=== PATIENT | male | born 1950 | race Caucasian/White ===

== ENCOUNTER 2018-01-01 13:06 | Inpatient (IN) | payer MEDICARE ==
[~2018-01-01] VITALS: Ht 180.3 cm; Wt 88.5 kg
[2018-01-01 15:30] VITALS: BP 147/79
[2018-01-01] MEDS ORDERED: DOCUSATE SODIUM 283 MG/5 ML MINI-ENEMA PR PRN (16:15)
[2018-01-01] MEDS ORDERED: ACETAMINOPHEN 325 MG TABLET PO PRN (16:15)
[2018-01-01] MEDS ORDERED: ONDANSETRON HCL 4 MG TABLET PO PRN (16:45)
[2018-01-01] MEDS ORDERED: DEXTROSE 50%-WATER 25 GM/50 ML SYRINGE IVP PRN (18:15)
[2018-01-01 19:18] LABS: GLUCOMETER DEV NAME(LOC) 2WR 1B; GLUCOSE,POINT OF CARE 117 MG/DL (70-110)
[2018-01-01 20:02] LABS: APPEARANCE,URINE CLEAR (CLEAR); BILIRUBIN,URINE NEGATIVE (NEGATIVE); GLUCOSE, URINE (UA) NEGATIVE (NEGATIVE); KETONES,URINE NEGATIVE (NEGATIVE); LEUKOCYTE ESTERASE ,URINE NEGATIVE (NEGATIVE); NITRATE,URINE NEGATIVE (NEGATIVE); OCCULT BLOOD,URINE NEGATIVE (NEGATIVE); PH,URINE 5.5 (5.0-8.0); PROTEIN,URINE NEGATIVE (NEGATIVE); UROBILINOGEN,URINE 0.2 mg/dL (<=1.0)
[2018-01-01] MEDS: SENNA 187 MG TABLET PO SCH ×2 (21:00→22:45)
[2018-01-01] MEDS: ESCITALOPRAM OXALATE 10 MG TABLET PO SCH ×2 (21:00→21:34)
[2018-01-01] MEDS: INSULIN GLARGINE,HUM.REC.ANLOG 100 UNITS/ML SQ SCH (21:33)
[2018-01-01] MEDS: DOCUSATE SODIUM 100 MG CAPSULE PO SCH (21:33)
[2018-01-01] MEDS: GABAPENTIN 300 MG CAPSULE PO SCH (21:34)
[2018-01-01] MEDS: ATORVASTATIN CALCIUM 40 MG TABLET PO SCH (21:34)
[2018-01-01] MEDS: QUEtiapine FUMARATE 25 MG TABLET PO SCH (21:35)
[2018-01-01] MEDS: METOPROLOL TARTRATE 50 MG TABLET PO SCH (21:36)
[2018-01-01 23:53] LABS: GLUCOMETER DEV NAME(LOC) 2WR 1B; GLUCOSE,POINT OF CARE 132 MG/DL (70-110)
[2018-01-02 03:05] VITALS: BP 124/76
[2018-01-02 06:39] LABS: GLUCOMETER DEV NAME(LOC) 2WR 2E; GLUCOSE,POINT OF CARE 114 MG/DL (70-110)
[2018-01-02] MEDS ORDERED: LEVOTHYROXINE SODIUM 75 MCG TABLET PO SCH (07:00)
[2018-01-02 07:50] VITALS: BP 156/92
[2018-01-02 07:59] LABS: BASOPHILS % (AUTO) 0.2 % (0.0-2.0); HEMATOCRIT 39.4 % (41-53); HEMOGLOBIN 13.7 g/dL (13.5-17.5); LYMPHOCYTES # (AUTO) 2.1 K/uL (1.0-4.8); LYMPHOCYTES % (AUTO) 37.4 % (22.0-44.0); MEAN CORPUSCULAR HEMOGLOBIN 30.6 pg (26.0-34.0); MEAN CORPUSCULAR HGB CONC 34.8 G/dL (31.0-37.0); MEAN CORPUSCULAR VOLUME 88 fL (80-100); MONOCYTES # (AUTO) 0.5 K/uL (0.1-1.0); MONOCYTES % (AUTO) 8.2 % (2.0-9.0); NEUTROPHILS % (AUTO) 52.2 % (40.0-70.0); PLATELET COUNT (AUTO) 170 K/uL (150-450); RED BLOOD CELL COUNT(AUTO) 4.48 MIL/uL (4.50-5.90); RED CELL DISTRIBUTION WIDTH 15.2 % (11.5-14.5)
[2018-01-02 08:07] LABS: ALBUMIN 3.1 g/dL (3.4-5.0); BILIRUBIN,TOTAL 0.4 mg/dL (0.1-1.0); CALCIUM, TOTAL 8.7 mg/dL (8.8-10.5); CREATININE 1.36 mg/dL (0.60-1.30); POTASSIUM 3.9 mmol/L (3.5-5.1); TOTAL PROTEIN, SERUM 6.6 g/dL (6.4-8.2)
[2018-01-02] MEDS: DOCUSATE SODIUM 100 MG CAPSULE PO SCH ×2 (09:00→20:52)
[2018-01-02] MEDS: GABAPENTIN 300 MG CAPSULE PO SCH ×3 (09:25→20:51)
[2018-01-02] MEDS: BuPROPion HCL XL 150 MG ER TABLET PO SCH (09:26)
[2018-01-02] MEDS: ABACAVIR SULFATE 300 MG TABLET PO SCH (09:27)
[2018-01-02] MEDS: DOLUTEGRAVIR SODIUM 50 MG TABLET PO SCH (09:27)
[2018-01-02] MEDS: METOPROLOL TARTRATE 50 MG TABLET PO SCH ×2 (09:28→20:51)
[2018-01-02] MEDS: ASPIRIN 81 MG CHEWABLE TABLET PO SCH (09:29)
[2018-01-02] MEDS: INSULIN LISPRO 100 UNITS/ML SQ SCH ×2 (09:36→13:08)
[2018-01-02 12:23] LABS: GLUCOMETER DEV NAME(LOC) 2WR 2E; GLUCOSE,POINT OF CARE 103 MG/DL (70-110)
[2018-01-02 13:59] VITALS: BP 149/97
[2018-01-02 15:53] VITALS: BP 151/95
[2018-01-02 17:49] LABS: GLUCOMETER DEV NAME(LOC) 2WR 2E; GLUCOSE,POINT OF CARE 118 MG/DL (70-110)
[2018-01-02 20:45] VITALS: BP 152/96
[2018-01-02] MEDS: ATORVASTATIN CALCIUM 40 MG TABLET PO SCH (20:51)
[2018-01-02] MEDS: ESCITALOPRAM OXALATE 10 MG TABLET PO SCH (20:51)
[2018-01-02] MEDS: SENNA 187 MG TABLET PO SCH (20:52)
[2018-01-02] MEDS: QUEtiapine FUMARATE 25 MG TABLET PO SCH (20:52)
[2018-01-02] MEDS: INSULIN GLARGINE,HUM.REC.ANLOG 100 UNITS/ML SQ SCH (21:20)
[2018-01-02] MEDS: INSULIN LISPRO 100 UNITS/ML SQ PRN (21:22)
[2018-01-02 23:30] VITALS: BP 154/88
[2018-01-03 00:28] LABS: GLUCOMETER DEV NAME(LOC) 2WR 1B; GLUCOSE,POINT OF CARE 158 MG/DL (70-110)
[2018-01-03] MEDS: SitaGLIPtin PHOSPHATE 50 MG TABLET PO SCH (08:09)
[2018-01-03] MEDS: GABAPENTIN 300 MG CAPSULE PO SCH ×3 (08:09→21:00)
[2018-01-03] MEDS: METOPROLOL TARTRATE 50 MG TABLET PO SCH ×2 (08:09→21:00)
[2018-01-03] MEDS: DOLUTEGRAVIR SODIUM 50 MG TABLET PO SCH (08:09)
[2018-01-03] MEDS: ABACAVIR SULFATE 300 MG TABLET PO SCH (08:09)
[2018-01-03] MEDS: DOCUSATE SODIUM 100 MG CAPSULE PO SCH ×3 (08:09→21:00)
[2018-01-03 08:10] VITALS: BP 140/84
[2018-01-03] MEDS: BuPROPion HCL XL 150 MG ER TABLET PO SCH (08:10)
[2018-01-03] MEDS: ASPIRIN 81 MG CHEWABLE TABLET PO SCH (08:10)
[2018-01-03] MEDS: LEVOTHYROXINE SODIUM 75 MCG TABLET PO SCH (08:10)
[2018-01-03 08:19] LABS: GLUCOMETER DEV NAME(LOC) 2WR 2E; GLUCOSE,POINT OF CARE 106 MG/DL (70-110)
[2018-01-03] MEDS ORDERED: ALBUTEROL SULFATE 2.5 MG/0.5 ML NEB SOLUTION NEB PRN (13:30)
[2018-01-03] MEDS ORDERED: IPRATROPIUM BROMIDE 0.5 MG/2.5 ML NEB SOLUTION NEB PRN (13:30)
[2018-01-03 14:49] LABS: GLUCOMETER DEV NAME(LOC) 2WR 1B; GLUCOSE,POINT OF CARE 140 MG/DL (70-110)
[2018-01-03 15:19] VITALS: BP 150/94
[2018-01-03 17:54] LABS: GLUCOMETER DEV NAME(LOC) 2WR 1B; GLUCOSE,POINT OF CARE 107 MG/DL (70-110)
[2018-01-03 20:54] VITALS: BP 149/96
[2018-01-03] MEDS: ATORVASTATIN CALCIUM 40 MG TABLET PO SCH (20:59)
[2018-01-03] MEDS: ESCITALOPRAM OXALATE 10 MG TABLET PO SCH (20:59)
[2018-01-03] MEDS: QUEtiapine FUMARATE 25 MG TABLET PO SCH (20:59)
[2018-01-03] MEDS: SENNA 187 MG TABLET PO SCH (21:00)
[2018-01-03] MEDS: INSULIN GLARGINE,HUM.REC.ANLOG 100 UNITS/ML SQ SCH (21:08)
[2018-01-03] MEDS: INSULIN LISPRO 100 UNITS/ML SQ PRN (21:09)
[2018-01-03 22:19] LABS: GLUCOMETER DEV NAME(LOC) 2WR 2E; GLUCOSE,POINT OF CARE 144 MG/DL (70-110)
[2018-01-04 03:39] VITALS: BP 134/78
[2018-01-04 07:39] LABS: GLUCOMETER DEV NAME(LOC) 2WR 1B; GLUCOSE,POINT OF CARE 124 MG/DL (70-110)
[2018-01-04 07:40] VITALS: BP 145/84
[2018-01-04] MEDS: ASPIRIN 81 MG CHEWABLE TABLET PO SCH (08:20)
[2018-01-04] MEDS: GABAPENTIN 300 MG CAPSULE PO SCH ×3 (08:20→21:01)
[2018-01-04] MEDS: BuPROPion HCL XL 150 MG ER TABLET PO SCH (08:20)
[2018-01-04] MEDS: DOLUTEGRAVIR SODIUM 50 MG TABLET PO SCH (08:21)
[2018-01-04] MEDS: SitaGLIPtin PHOSPHATE 50 MG TABLET PO SCH (08:21)
[2018-01-04] MEDS: DOCUSATE SODIUM 100 MG CAPSULE PO SCH ×2 (08:21→21:00)
[2018-01-04] MEDS: ABACAVIR SULFATE 300 MG TABLET PO SCH (08:21)
[2018-01-04] MEDS: LEVOTHYROXINE SODIUM 75 MCG TABLET PO SCH (08:21)
[2018-01-04] MEDS: METOPROLOL TARTRATE 50 MG TABLET PO SCH ×2 (08:21→21:01)
[2018-01-04 12:43] LABS: GLUCOMETER DEV NAME(LOC) 2WR 2E; GLUCOSE,POINT OF CARE 108 MG/DL (70-110)
[2018-01-04 13:45] LABS: APPEARANCE,URINE CLEAR (CLEAR); BILIRUBIN,URINE NEGATIVE (NEGATIVE); GLUCOSE, URINE (UA) NEGATIVE (NEGATIVE); KETONES,URINE NEGATIVE (NEGATIVE); LEUKOCYTE ESTERASE ,URINE NEGATIVE (NEGATIVE); NITRATE,URINE NEGATIVE (NEGATIVE); OCCULT BLOOD,URINE NEGATIVE (NEGATIVE); PH,URINE 5.5 (5.0-8.0); PROTEIN,URINE NEGATIVE (NEGATIVE)
[2018-01-04 13:54] LABS: BACTERIA,URINE None Seen /HPF (None Seen); RBC,URINE None Seen /HPF (0-2); SQUAMOUS EPITHELIAL CELL,UR Rare /LPF (None Seen); WBC,URINE None Seen /HPF (0-5)
[2018-01-04 16:00] VITALS: BP 131/80
[2018-01-04 16:26] LABS: HEMOGLOBIN A1C 6.7 % (4.5-6.2)
[2018-01-04 16:35] LABS: PROTHROMBIN TIME 10.4 SEC (9.4-11.6)
[2018-01-04 16:39] LABS: CHOL/HDL RATIO 3.5 (4.2-7.3); THYROID STIMULATING HORMONE 2.07 uIU/mL (0.36-3.74)
[2018-01-04 17:59] LABS: GLUCOMETER DEV NAME(LOC) 2WR 2E; GLUCOSE,POINT OF CARE 105 MG/DL (70-110)
[2018-01-04 21:00] VITALS: BP 148/88
[2018-01-04] MEDS: QUEtiapine FUMARATE 100 MG TABLET PO SCH (21:00)
[2018-01-04] MEDS: ESCITALOPRAM OXALATE 10 MG TABLET PO SCH (21:01)
[2018-01-04] MEDS: ATORVASTATIN CALCIUM 40 MG TABLET PO SCH (21:01)
[2018-01-04] MEDS: SENNA 187 MG TABLET PO SCH (21:01)
[2018-01-04] MEDS: INSULIN GLARGINE,HUM.REC.ANLOG 100 UNITS/ML SQ SCH (21:06)
[2018-01-04 22:29] LABS: GLUCOMETER DEV NAME(LOC) 2WR 1B; GLUCOSE,POINT OF CARE 131 MG/DL (70-110)
[2018-01-05 05:30] VITALS: BP 132/78
[2018-01-05 06:35] LABS: GLUCOMETER DEV NAME(LOC) 2WR 2E; GLUCOSE,POINT OF CARE 138 MG/DL (70-110)
[2018-01-05 08:24] VITALS: BP 147/88
[2018-01-05] MEDS: DOCUSATE SODIUM 100 MG CAPSULE PO SCH ×3 (09:00→21:00)
[2018-01-05] MEDS: GABAPENTIN 300 MG CAPSULE PO SCH ×3 (09:15→20:27)
[2018-01-05] MEDS: BuPROPion HCL XL 150 MG ER TABLET PO SCH (09:15)
[2018-01-05] MEDS: LEVOTHYROXINE SODIUM 75 MCG TABLET PO SCH (09:16)
[2018-01-05] MEDS: METOPROLOL TARTRATE 50 MG TABLET PO SCH ×2 (09:16→20:31)
[2018-01-05] MEDS: DOLUTEGRAVIR SODIUM 50 MG TABLET PO SCH (09:16)
[2018-01-05] MEDS: ABACAVIR SULFATE 300 MG TABLET PO SCH (09:16)
[2018-01-05] MEDS: ASPIRIN 81 MG CHEWABLE TABLET PO SCH (09:16)
[2018-01-05] MEDS: SitaGLIPtin PHOSPHATE 50 MG TABLET PO SCH (09:19)
[2018-01-05 09:50] LABS: CALCIUM, TOTAL 9.2 mg/dL (8.8-10.5); CREATININE 1.62 mg/dL (0.60-1.30); POTASSIUM 4.1 mmol/L (3.5-5.1)
[2018-01-05 12:24] LABS: GLUCOMETER DEV NAME(LOC) 2WR 1B; GLUCOSE,POINT OF CARE 123 MG/DL (70-110)
[2018-01-05 16:15] VITALS: BP 132/76
[2018-01-05 18:34] LABS: GLUCOMETER DEV NAME(LOC) 2WR 1B; GLUCOSE,POINT OF CARE 118 MG/DL (70-110)
[2018-01-05] MEDS: ATORVASTATIN CALCIUM 40 MG TABLET PO SCH (20:27)
[2018-01-05] MEDS: ESCITALOPRAM OXALATE 10 MG TABLET PO SCH (20:27)
[2018-01-05 20:30] VITALS: BP 145/87
[2018-01-05] MEDS: SENNA 187 MG TABLET PO SCH (21:00)
[2018-01-05] MEDS: INSULIN GLARGINE,HUM.REC.ANLOG 100 UNITS/ML SQ SCH (21:50)
[2018-01-05] MEDS: QUEtiapine FUMARATE 100 MG TABLET PO SCH (21:50)
[2018-01-05 23:43] LABS: GLUCOMETER DEV NAME(LOC) 2WR 2E; GLUCOSE,POINT OF CARE 140 MG/DL (70-110)
[2018-01-06 05:30] VITALS: BP 128/74
[2018-01-06 06:19] LABS: GLUCOMETER DEV NAME(LOC) 2WR 2E; GLUCOSE,POINT OF CARE 136 MG/DL (70-110)
[2018-01-06 07:05] VITALS: BP 127/65
[2018-01-06 07:20] LABS: CALCIUM, TOTAL 9.2 mg/dL (8.8-10.5); CREATININE 1.54 mg/dL (0.60-1.30); POTASSIUM 3.7 mmol/L (3.5-5.1)
[2018-01-06] MEDS: GABAPENTIN 300 MG CAPSULE PO SCH ×3 (08:09→20:36)
[2018-01-06] MEDS: LEVOTHYROXINE SODIUM 75 MCG TABLET PO SCH (08:09)
[2018-01-06] MEDS: SitaGLIPtin PHOSPHATE 50 MG TABLET PO SCH (08:09)
[2018-01-06] MEDS: DOLUTEGRAVIR SODIUM 50 MG TABLET PO SCH (08:10)
[2018-01-06] MEDS: BuPROPion HCL XL 150 MG ER TABLET PO SCH (08:10)
[2018-01-06] MEDS: METOPROLOL TARTRATE 50 MG TABLET PO SCH ×2 (08:10→20:36)
[2018-01-06] MEDS: ABACAVIR SULFATE 300 MG TABLET PO SCH (08:11)
[2018-01-06] MEDS: ASPIRIN 81 MG CHEWABLE TABLET PO SCH (08:11)
[2018-01-06] MEDS: DOCUSATE SODIUM 100 MG CAPSULE PO SCH ×2 (08:11→20:36)
[2018-01-06 13:09] LABS: GLUCOMETER DEV NAME(LOC) 2WR 2E; GLUCOSE,POINT OF CARE 110 MG/DL (70-110)
[2018-01-06 16:05] VITALS: BP 140/94
[2018-01-06 17:44] LABS: GLUCOMETER DEV NAME(LOC) 2WR 2E; GLUCOSE,POINT OF CARE 123 MG/DL (70-110)
[2018-01-06] MEDS: ATORVASTATIN CALCIUM 40 MG TABLET PO SCH (20:36)
[2018-01-06] MEDS: SENNA 187 MG TABLET PO SCH (20:36)
[2018-01-06] MEDS: ESCITALOPRAM OXALATE 10 MG TABLET PO SCH (20:36)
[2018-01-06] MEDS: QUEtiapine FUMARATE 100 MG TABLET PO SCH (20:43)
[2018-01-06] MEDS: INSULIN LISPRO 100 UNITS/ML SQ PRN (20:49)
[2018-01-06] MEDS: INSULIN GLARGINE,HUM.REC.ANLOG 100 UNITS/ML SQ SCH (20:49)
[2018-01-06 20:52] VITALS: BP 155/95
[2018-01-06 21:44] LABS: GLUCOMETER DEV NAME(LOC) 2WR 2E; GLUCOSE,POINT OF CARE 152 MG/DL (70-110)
[2018-01-07 06:35] LABS: GLUCOMETER DEV NAME(LOC) 2WR 1B; GLUCOSE,POINT OF CARE 112 MG/DL (70-110)
[2018-01-07 07:05] LABS: CREATININE 1.53 mg/dL (0.60-1.30); POTASSIUM 3.7 mmol/L (3.5-5.1)
[2018-01-07 07:50] VITALS: BP 151/89
[2018-01-07] MEDS: SitaGLIPtin PHOSPHATE 50 MG TABLET PO SCH (08:38)
[2018-01-07] MEDS: DOLUTEGRAVIR SODIUM 50 MG TABLET PO SCH (08:38)
[2018-01-07] MEDS: ABACAVIR SULFATE 300 MG TABLET PO SCH (08:38)
[2018-01-07] MEDS: ASPIRIN 81 MG CHEWABLE TABLET PO SCH (08:39)
[2018-01-07] MEDS: DOCUSATE SODIUM 100 MG CAPSULE PO SCH ×3 (08:39→20:28)
[2018-01-07] MEDS: METOPROLOL TARTRATE 50 MG TABLET PO SCH ×2 (08:39→21:23)
[2018-01-07] MEDS: LEVOTHYROXINE SODIUM 75 MCG TABLET PO SCH (08:39)
[2018-01-07] MEDS: GABAPENTIN 300 MG CAPSULE PO SCH ×3 (08:39→20:28)
[2018-01-07] MEDS: BuPROPion HCL XL 150 MG ER TABLET PO SCH (08:39)
[2018-01-07 10:19] VITALS: BP 132/74
[2018-01-07 12:24] LABS: GLUCOMETER DEV NAME(LOC) 2WR 1B; GLUCOSE,POINT OF CARE 106 MG/DL (70-110)
[2018-01-07 15:53] VITALS: BP 133/75
[2018-01-07 17:54] LABS: GLUCOMETER DEV NAME(LOC) 2WR 1B; GLUCOSE,POINT OF CARE 105 MG/DL (70-110)
[2018-01-07] MEDS: ATORVASTATIN CALCIUM 40 MG TABLET PO SCH (20:28)
[2018-01-07] MEDS: SENNA 187 MG TABLET PO SCH (20:28)
[2018-01-07] MEDS: ESCITALOPRAM OXALATE 10 MG TABLET PO SCH (20:28)
[2018-01-07 20:42] VITALS: BP 152/95
[2018-01-07] MEDS: QUEtiapine FUMARATE 100 MG TABLET PO SCH (21:23)
[2018-01-07] MEDS: INSULIN GLARGINE,HUM.REC.ANLOG 100 UNITS/ML SQ SCH (21:25)
[2018-01-07 22:14] LABS: GLUCOMETER DEV NAME(LOC) 2WR 1B; GLUCOSE,POINT OF CARE 138 MG/DL (70-110)
[2018-01-08 00:16] VITALS: BP 137/78
[2018-01-08 06:38] LABS: GLUCOMETER DEV NAME(LOC) 2WR 1B; GLUCOSE,POINT OF CARE 153 MG/DL (70-110)
[2018-01-08 06:46] LABS: CREATININE 1.58 mg/dL (0.60-1.30); POTASSIUM 3.7 mmol/L (3.5-5.1)
[2018-01-08 07:43] VITALS: BP 141/84
[2018-01-08] MEDS: DOLUTEGRAVIR SODIUM 50 MG TABLET PO SCH (08:54)
[2018-01-08] MEDS: DOCUSATE SODIUM 100 MG CAPSULE PO SCH ×2 (08:54→20:23)
[2018-01-08] MEDS: BuPROPion HCL XL 150 MG ER TABLET PO SCH (08:54)
[2018-01-08] MEDS: ABACAVIR SULFATE 300 MG TABLET PO SCH (08:55)
[2018-01-08] MEDS: ASPIRIN 81 MG CHEWABLE TABLET PO SCH (08:55)
[2018-01-08] MEDS: GABAPENTIN 300 MG CAPSULE PO SCH ×3 (08:56→20:23)
[2018-01-08] MEDS: METOPROLOL TARTRATE 50 MG TABLET PO SCH ×2 (08:56→20:56)
[2018-01-08] MEDS: LEVOTHYROXINE SODIUM 75 MCG TABLET PO SCH (08:56)
[2018-01-08] MEDS: SitaGLIPtin PHOSPHATE 50 MG TABLET PO SCH (08:56)
[2018-01-08] MEDS ORDERED: SODIUM PHOS/SODIUM BIPHOS 133 ML ENEMA PR PRN (09:45)
[2018-01-08 11:44] LABS: GLUCOMETER DEV NAME(LOC) 2WR 2E; GLUCOSE,POINT OF CARE 78 MG/DL (70-110)
[2018-01-08 15:45] VITALS: BP 135/83
[2018-01-08 17:24] LABS: GLUCOMETER DEV NAME(LOC) 2WR 2E; GLUCOSE,POINT OF CARE 124 MG/DL (70-110)
[2018-01-08] MEDS ORDERED: SODIUM PHOS/SODIUM BIPHOS 133 ML ENEMA PR ONE (20:00)
[2018-01-08] MEDS: ATORVASTATIN CALCIUM 40 MG TABLET PO SCH (20:22)
[2018-01-08] MEDS: ESCITALOPRAM OXALATE 10 MG TABLET PO SCH (20:23)
[2018-01-08] MEDS: SENNA 187 MG TABLET PO SCH (20:23)
[2018-01-08 20:55] VITALS: BP 155/86
[2018-01-08] MEDS: QUEtiapine FUMARATE 100 MG TABLET PO SCH (21:43)
[2018-01-08] MEDS: INSULIN GLARGINE,HUM.REC.ANLOG 100 UNITS/ML SQ SCH (21:44)
[2018-01-08 23:03] LABS: GLUCOMETER DEV NAME(LOC) 2WR 2E; GLUCOSE,POINT OF CARE 99 MG/DL (70-110)
[2018-01-09] MEDS ORDERED: ESCI10TA PO (04:27)
[2018-01-09] MEDS ORDERED: LEVO50 PO (04:27)
[2018-01-09] MEDS ORDERED: GABA-531 PO (04:27)
[2018-01-09] MEDS ORDERED: BUPR-93 PO (04:27)
[2018-01-09] MEDS ORDERED: DOLU50TA PO (04:27)
[2018-01-09] MEDS ORDERED: ASPI81TA39 PO (04:27)
[2018-01-09] MEDS ORDERED: ATOR40TA28 PO (04:27)
[2018-01-09] MEDS ORDERED: INSLAN SQ (04:27)
[2018-01-09] MEDS ORDERED: ABAC300T8 PO (04:27)
[2018-01-09] MEDS ORDERED: LAMI300T PO (04:27)
[2018-01-09] MEDS ORDERED: QUET100T PO (04:27)
[2018-01-09] MEDS ORDERED: SITA50 PO (04:27)
[2018-01-09] MEDS ORDERED: METO50 PO (04:27)
[2018-01-09] MEDS ORDERED: SENN8.6T90 PO (04:27)
[2018-01-09] MEDS ORDERED: DSS100 PO (04:27)
[2018-01-09] MEDS ORDERED: INSU100V SQ (04:27)
[2018-01-09 05:00] VITALS: BP 136/78
[2018-01-09 05:29] LABS: GLUCOMETER DEV NAME(LOC) 2WR 1B; GLUCOSE,POINT OF CARE 118 MG/DL (70-110)
[2018-01-09 07:32] LABS: CALCIUM, TOTAL 9.2 mg/dL (8.8-10.5); CREATININE 1.61 mg/dL (0.60-1.30)
[2018-01-09 08:05] VITALS: BP 140/84
[2018-01-09] MEDS: DOCUSATE SODIUM 100 MG CAPSULE PO SCH ×2 (08:11→20:38)
[2018-01-09] MEDS: GABAPENTIN 300 MG CAPSULE PO SCH ×3 (08:11→20:38)
[2018-01-09] MEDS: LEVOTHYROXINE SODIUM 75 MCG TABLET PO SCH (08:11)
[2018-01-09] MEDS: SitaGLIPtin PHOSPHATE 50 MG TABLET PO SCH (08:11)
[2018-01-09] MEDS: ASPIRIN 81 MG CHEWABLE TABLET PO SCH (08:11)
[2018-01-09] MEDS: BuPROPion HCL XL 150 MG ER TABLET PO SCH (08:11)
[2018-01-09] MEDS: ABACAVIR SULFATE 300 MG TABLET PO SCH (08:12)
[2018-01-09] MEDS: METOPROLOL TARTRATE 50 MG TABLET PO SCH ×2 (08:12→20:38)
[2018-01-09] MEDS: DOLUTEGRAVIR SODIUM 50 MG TABLET PO SCH (08:12)
[2018-01-09 13:19] LABS: GLUCOMETER DEV NAME(LOC) 2WR 1B; GLUCOSE,POINT OF CARE 94 MG/DL (70-110)
[2018-01-09 15:10] VITALS: BP 163/93
[2018-01-09 17:44] LABS: GLUCOMETER DEV NAME(LOC) 2WR 1B; GLUCOSE,POINT OF CARE 133 MG/DL (70-110)
[2018-01-09 20:30] VITALS: BP 141/85
[2018-01-09] MEDS: SENNA 187 MG TABLET PO SCH (20:38)
[2018-01-09] MEDS: ESCITALOPRAM OXALATE 10 MG TABLET PO SCH (20:38)
[2018-01-09] MEDS: QUEtiapine FUMARATE 100 MG TABLET PO SCH (20:38)
[2018-01-09] MEDS: ATORVASTATIN CALCIUM 40 MG TABLET PO SCH (20:38)
[2018-01-09] MEDS: INSULIN GLARGINE,HUM.REC.ANLOG 100 UNITS/ML SQ SCH (20:40)
[2018-01-09] MEDS: INSULIN LISPRO 100 UNITS/ML SQ PRN (20:43)
[2018-01-09 21:23] LABS: GLUCOMETER DEV NAME(LOC) 2WR 1B; GLUCOSE,POINT OF CARE 160 MG/DL (70-110)
[2018-01-09 23:12] VITALS: BP 136/73
[2018-01-10 06:49] LABS: GLUCOMETER DEV NAME(LOC) 2WR 2E; GLUCOSE,POINT OF CARE 122 MG/DL (70-110)
[2018-01-10 07:15] LABS: CALCIUM, TOTAL 8.9 mg/dL (8.8-10.5); CREATININE 1.36 mg/dL (0.60-1.30)
[2018-01-10 08:02] VITALS: BP 126/77
[2018-01-10 08:47] VITALS: BP 138/82
[2018-01-10] MEDS: LEVOTHYROXINE SODIUM 75 MCG TABLET PO SCH (08:51)
[2018-01-10] MEDS: DOLUTEGRAVIR SODIUM 50 MG TABLET PO SCH (08:52)
[2018-01-10] MEDS: GABAPENTIN 300 MG CAPSULE PO SCH ×3 (08:52→20:49)
[2018-01-10] MEDS: METOPROLOL TARTRATE 50 MG TABLET PO SCH ×2 (08:52→20:50)
[2018-01-10] MEDS: BuPROPion HCL XL 150 MG ER TABLET PO SCH (08:53)
[2018-01-10] MEDS: SitaGLIPtin PHOSPHATE 50 MG TABLET PO SCH (08:53)
[2018-01-10] MEDS: ASPIRIN 81 MG CHEWABLE TABLET PO SCH (08:53)
[2018-01-10] MEDS: ABACAVIR SULFATE 300 MG TABLET PO SCH (08:53)
[2018-01-10] MEDS: DOCUSATE SODIUM 100 MG CAPSULE PO SCH ×2 (08:54→20:51)
[2018-01-10 12:39] LABS: GLUCOMETER DEV NAME(LOC) 2WR 2E; GLUCOSE,POINT OF CARE 105 MG/DL (70-110)
[2018-01-10 15:30] VITALS: BP 128/78
[2018-01-10 18:19] LABS: GLUCOMETER DEV NAME(LOC) 2WR 1B; GLUCOSE,POINT OF CARE 134 MG/DL (70-110)
[2018-01-10 20:49] LABS: GLUCOMETER DEV NAME(LOC) 2WR 2E; GLUCOSE,POINT OF CARE 165 MG/DL (70-110)
[2018-01-10] MEDS: ESCITALOPRAM OXALATE 10 MG TABLET PO SCH (20:49)
[2018-01-10 20:50] VITALS: BP 146/43
[2018-01-10] MEDS: QUEtiapine FUMARATE 100 MG TABLET PO SCH (20:50)
[2018-01-10] MEDS: SENNA 187 MG TABLET PO SCH (20:51)
[2018-01-10] MEDS: ATORVASTATIN CALCIUM 40 MG TABLET PO SCH (20:53)
[2018-01-10] MEDS: INSULIN GLARGINE,HUM.REC.ANLOG 100 UNITS/ML SQ SCH (20:54)
[2018-01-10] MEDS: INSULIN LISPRO 100 UNITS/ML SQ PRN (20:55)
[2018-01-11 05:30] VITALS: BP 144/78
[2018-01-11 05:54] LABS: GLUCOMETER DEV NAME(LOC) 2WR 1B; GLUCOSE,POINT OF CARE 126 MG/DL (70-110)
[2018-01-11 07:55] VITALS: BP 149/90
[2018-01-11] MEDS: DOLUTEGRAVIR SODIUM 50 MG TABLET PO SCH (07:57)
[2018-01-11] MEDS: GABAPENTIN 300 MG CAPSULE PO SCH ×3 (07:58→20:23)
[2018-01-11] MEDS: BuPROPion HCL XL 150 MG ER TABLET PO SCH (07:58)
[2018-01-11] MEDS: ABACAVIR SULFATE 300 MG TABLET PO SCH (07:59)
[2018-01-11] MEDS: LEVOTHYROXINE SODIUM 75 MCG TABLET PO SCH (07:59)
[2018-01-11] MEDS: ASPIRIN 81 MG CHEWABLE TABLET PO SCH (08:00)
[2018-01-11] MEDS: SitaGLIPtin PHOSPHATE 50 MG TABLET PO SCH (08:00)
[2018-01-11] MEDS: METOPROLOL TARTRATE 50 MG TABLET PO SCH ×2 (08:00→20:24)
[2018-01-11] MEDS: DOCUSATE SODIUM 100 MG CAPSULE PO SCH ×2 (08:01→20:24)
[2018-01-11 12:35] LABS: GLUCOMETER DEV NAME(LOC) 2WR 2E; GLUCOSE,POINT OF CARE 132 MG/DL (70-110)
[2018-01-11 15:45] VITALS: BP 138/83
[2018-01-11 17:24] LABS: GLUCOMETER DEV NAME(LOC) 2WR 2E; GLUCOSE,POINT OF CARE 143 MG/DL (70-110)
[2018-01-11] MEDS: INSULIN LISPRO 100 UNITS/ML SQ PRN ×2 (18:03→21:23)
[2018-01-11 20:21] VITALS: BP 142/78
[2018-01-11] MEDS: ESCITALOPRAM OXALATE 10 MG TABLET PO SCH (20:23)
[2018-01-11] MEDS: ATORVASTATIN CALCIUM 40 MG TABLET PO SCH (20:23)
[2018-01-11] MEDS: QUEtiapine FUMARATE 100 MG TABLET PO SCH (20:24)
[2018-01-11] MEDS: SENNA 187 MG TABLET PO SCH (20:24)
[2018-01-11] MEDS: INSULIN GLARGINE,HUM.REC.ANLOG 100 UNITS/ML SQ SCH (21:24)
[2018-01-11 21:43] LABS: GLUCOMETER DEV NAME(LOC) 2WR 2E; GLUCOSE,POINT OF CARE 183 MG/DL (70-110)
[2018-01-12 01:00] VITALS: BP 115/65
[2018-01-12 06:09] LABS: GLUCOMETER DEV NAME(LOC) 2WR 2E; GLUCOSE,POINT OF CARE 152 MG/DL (70-110)
[2018-01-12 07:42] VITALS: BP 143/77
[2018-01-12] MEDS: DOCUSATE SODIUM 100 MG CAPSULE PO SCH ×2 (09:00→20:31)
[2018-01-12] MEDS: BuPROPion HCL XL 150 MG ER TABLET PO SCH (09:07)
[2018-01-12] MEDS: ASPIRIN 81 MG CHEWABLE TABLET PO SCH (09:07)
[2018-01-12] MEDS: INSULIN LISPRO 100 UNITS/ML SQ PRN ×2 (09:07→20:33)
[2018-01-12] MEDS: ABACAVIR SULFATE 300 MG TABLET PO SCH (09:07)
[2018-01-12] MEDS: LEVOTHYROXINE SODIUM 75 MCG TABLET PO SCH (09:08)
[2018-01-12] MEDS: SitaGLIPtin PHOSPHATE 50 MG TABLET PO SCH (09:08)
[2018-01-12] MEDS: DOLUTEGRAVIR SODIUM 50 MG TABLET PO SCH (09:08)
[2018-01-12] MEDS: METOPROLOL TARTRATE 50 MG TABLET PO SCH ×2 (09:09→20:30)
[2018-01-12] MEDS: GABAPENTIN 300 MG CAPSULE PO SCH ×3 (09:09→20:30)
[2018-01-12 13:09] LABS: GLUCOMETER DEV NAME(LOC) 2WR 1B; GLUCOSE,POINT OF CARE 80 MG/DL (70-110)
[2018-01-12 15:00] VITALS: BP 142/78
[2018-01-12 17:49] LABS: GLUCOMETER DEV NAME(LOC) 2WR 2E; GLUCOSE,POINT OF CARE 118 MG/DL (70-110)
[2018-01-12] MEDS: ATORVASTATIN CALCIUM 40 MG TABLET PO SCH (20:29)
[2018-01-12 20:30] VITALS: BP 140/88
[2018-01-12] MEDS: QUEtiapine FUMARATE 100 MG TABLET PO SCH (20:30)
[2018-01-12] MEDS: ESCITALOPRAM OXALATE 10 MG TABLET PO SCH (20:30)
[2018-01-12] MEDS: SENNA 187 MG TABLET PO SCH (20:31)
[2018-01-12] MEDS: INSULIN GLARGINE,HUM.REC.ANLOG 100 UNITS/ML SQ SCH (20:32)
[2018-01-12 21:29] LABS: GLUCOMETER DEV NAME(LOC) 2WR 2E; GLUCOSE,POINT OF CARE 212 MG/DL (70-110)
[2018-01-13 02:36] VITALS: BP 120/68
[2018-01-13 06:23] LABS: GLUCOMETER DEV NAME(LOC) 2WR 1B; GLUCOSE,POINT OF CARE 141 MG/DL (70-110)
[2018-01-13 08:05] VITALS: BP 146/86
[2018-01-13] MEDS: DOLUTEGRAVIR SODIUM 50 MG TABLET PO SCH (08:10)
[2018-01-13] MEDS: GABAPENTIN 300 MG CAPSULE PO SCH ×2 (08:10→20:31)
[2018-01-13] MEDS: DOCUSATE SODIUM 100 MG CAPSULE PO SCH ×2 (08:11→21:00)
[2018-01-13] MEDS: LEVOTHYROXINE SODIUM 75 MCG TABLET PO SCH (08:11)
[2018-01-13] MEDS: METOPROLOL TARTRATE 50 MG TABLET PO SCH ×2 (08:11→20:32)
[2018-01-13] MEDS: SitaGLIPtin PHOSPHATE 50 MG TABLET PO SCH (08:11)
[2018-01-13] MEDS: ABACAVIR SULFATE 300 MG TABLET PO SCH (08:11)
[2018-01-13] MEDS: ASPIRIN 81 MG CHEWABLE TABLET PO SCH (08:12)
[2018-01-13] MEDS: BuPROPion HCL XL 150 MG ER TABLET PO SCH (08:12)
[2018-01-13] MEDS: INSULIN LISPRO 100 UNITS/ML SQ PRN (08:35)
[2018-01-13 13:13] LABS: GLUCOMETER DEV NAME(LOC) 2WR 2E; GLUCOSE,POINT OF CARE 113 MG/DL (70-110)
[2018-01-13 15:10] VITALS: BP 137/71
[2018-01-13 17:44] LABS: GLUCOMETER DEV NAME(LOC) 2WR 2E; GLUCOSE,POINT OF CARE 141 MG/DL (70-110)
[2018-01-13 20:00] VITALS: BP 143/75
[2018-01-13] MEDS: QUEtiapine FUMARATE 100 MG TABLET PO SCH (20:31)
[2018-01-13] MEDS: ESCITALOPRAM OXALATE 10 MG TABLET PO SCH (20:31)
[2018-01-13] MEDS: ATORVASTATIN CALCIUM 40 MG TABLET PO SCH (20:32)
[2018-01-13] MEDS: INSULIN GLARGINE,HUM.REC.ANLOG 100 UNITS/ML SQ SCH (20:46)
[2018-01-13 20:59] LABS: GLUCOMETER DEV NAME(LOC) 2WR 2E; GLUCOSE,POINT OF CARE 207 MG/DL (70-110)
[2018-01-13] MEDS: SENNA 187 MG TABLET PO SCH (21:00)
[2018-01-14 01:02] VITALS: BP 113/61
[2018-01-14] MEDS ORDERED: GABA-531 PO (04:31)
[2018-01-14 06:20] LABS: GLUCOMETER DEV NAME(LOC) 2WR 2E; GLUCOSE,POINT OF CARE 185 MG/DL (70-110)
[2018-01-14 07:40] VITALS: BP 138/82
[2018-01-14] MEDS: DOLUTEGRAVIR SODIUM 50 MG TABLET PO SCH (07:45)
[2018-01-14] MEDS: BuPROPion HCL XL 150 MG ER TABLET PO SCH (07:45)
[2018-01-14] MEDS: GABAPENTIN 300 MG CAPSULE PO SCH ×2 (07:46→21:00)
[2018-01-14] MEDS: ABACAVIR SULFATE 300 MG TABLET PO SCH (07:46)
[2018-01-14] MEDS: DOCUSATE SODIUM 100 MG CAPSULE PO SCH (07:46)
[2018-01-14] MEDS: SitaGLIPtin PHOSPHATE 50 MG TABLET PO SCH (07:46)
[2018-01-14] MEDS: LEVOTHYROXINE SODIUM 75 MCG TABLET PO SCH (07:46)
[2018-01-14] MEDS: ASPIRIN 81 MG CHEWABLE TABLET PO SCH (07:46)
[2018-01-14] MEDS: METOPROLOL TARTRATE 50 MG TABLET PO SCH ×2 (07:46→21:00)
[2018-01-14] MEDS: INSULIN LISPRO 100 UNITS/ML SQ PRN ×2 (07:55→21:10)
[2018-01-14] MEDS ORDERED: DOCUSATE SODIUM 100 MG CAPSULE PO PRN (08:45)
[2018-01-14 12:39] LABS: GLUCOMETER DEV NAME(LOC) 2WR 1B; GLUCOSE,POINT OF CARE 132 MG/DL (70-110)
[2018-01-14 15:16] VITALS: BP 137/102
[2018-01-14 17:34] LABS: GLUCOMETER DEV NAME(LOC) 2WR 2E; GLUCOSE,POINT OF CARE 133 MG/DL (70-110)
[2018-01-14 20:55] VITALS: BP 144/78
[2018-01-14] MEDS: QUEtiapine FUMARATE 100 MG TABLET PO SCH (21:00)
[2018-01-14] MEDS: ESCITALOPRAM OXALATE 10 MG TABLET PO SCH (21:00)
[2018-01-14] MEDS: SENNA 187 MG TABLET PO SCH (21:00)
[2018-01-14] MEDS: ATORVASTATIN CALCIUM 40 MG TABLET PO SCH (21:01)
[2018-01-14] MEDS: INSULIN GLARGINE,HUM.REC.ANLOG 100 UNITS/ML SQ SCH (21:07)
[2018-01-14 22:49] LABS: GLUCOMETER DEV NAME(LOC) 2WR 2E; GLUCOSE,POINT OF CARE 182 MG/DL (70-110)
[2018-01-15 00:48] VITALS: BP 142/75
[2018-01-15 06:30] LABS: GLUCOMETER DEV NAME(LOC) 2WR 1B; GLUCOSE,POINT OF CARE 153 MG/DL (70-110)
[2018-01-15 08:14] VITALS: BP 152/85
[2018-01-15] MEDS: ASPIRIN 81 MG CHEWABLE TABLET PO SCH (08:30)
[2018-01-15] MEDS: BuPROPion HCL XL 150 MG ER TABLET PO SCH (08:30)
[2018-01-15] MEDS: LEVOTHYROXINE SODIUM 75 MCG TABLET PO SCH (08:30)
[2018-01-15] MEDS: METOPROLOL TARTRATE 50 MG TABLET PO SCH ×2 (08:30→20:32)
[2018-01-15] MEDS: DOLUTEGRAVIR SODIUM 50 MG TABLET PO SCH (08:31)
[2018-01-15] MEDS: ABACAVIR SULFATE 300 MG TABLET PO SCH (08:31)
[2018-01-15] MEDS: GABAPENTIN 300 MG CAPSULE PO SCH ×2 (08:31→20:31)
[2018-01-15] MEDS: SitaGLIPtin PHOSPHATE 50 MG TABLET PO SCH (08:31)
[2018-01-15] MEDS: INSULIN LISPRO 100 UNITS/ML SQ PRN ×2 (08:33→20:41)
[2018-01-15 12:14] LABS: GLUCOMETER DEV NAME(LOC) 2WR 2E; GLUCOSE,POINT OF CARE 119 MG/DL (70-110)
[2018-01-15 15:26] VITALS: BP 158/73
[2018-01-15 18:44] LABS: GLUCOMETER DEV NAME(LOC) 2WR 1B; GLUCOSE,POINT OF CARE 117 MG/DL (70-110)
[2018-01-15] MEDS: ESCITALOPRAM OXALATE 10 MG TABLET PO SCH (20:31)
[2018-01-15] MEDS: ATORVASTATIN CALCIUM 40 MG TABLET PO SCH (20:31)
[2018-01-15] MEDS: QUEtiapine FUMARATE 100 MG TABLET PO SCH (20:32)
[2018-01-15] MEDS: SENNA 187 MG TABLET PO SCH (20:32)
[2018-01-15] MEDS: INSULIN GLARGINE,HUM.REC.ANLOG 100 UNITS/ML SQ SCH (20:41)
[2018-01-15 21:59] LABS: GLUCOMETER DEV NAME(LOC) 2WR 2E; GLUCOSE,POINT OF CARE 285 MG/DL (70-110)
[2018-01-16] MEDS ORDERED: ATOR40TA28 PO (03:03)
[2018-01-16 04:58] VITALS: BP 115/65
[2018-01-16 06:49] LABS: GLUCOMETER DEV NAME(LOC) 2WR 1B; GLUCOSE,POINT OF CARE 146 MG/DL (70-110)
[2018-01-16 07:49] VITALS: BP 119/76
[2018-01-16] MEDS: LEVOTHYROXINE SODIUM 75 MCG TABLET PO SCH (08:08)
[2018-01-16] MEDS: GABAPENTIN 300 MG CAPSULE PO SCH (08:09)
[2018-01-16] MEDS: SitaGLIPtin PHOSPHATE 50 MG TABLET PO SCH (08:09)
[2018-01-16] MEDS: DOLUTEGRAVIR SODIUM 50 MG TABLET PO SCH (08:09)
[2018-01-16] MEDS: BuPROPion HCL XL 150 MG ER TABLET PO SCH (08:10)
[2018-01-16] MEDS: ASPIRIN 81 MG CHEWABLE TABLET PO SCH (08:10)
[2018-01-16] MEDS: ABACAVIR SULFATE 300 MG TABLET PO SCH (08:10)
[2018-01-16] MEDS: METOPROLOL TARTRATE 50 MG TABLET PO SCH (08:10)
== END 2018-01-16 12:14 | disposition home or self-care (01) | DRG 65 ==
LOC: 2WR 15:05
PROVIDERS: ADMIT Physical Medicine & Rehabilitation; ATTEND Physical Medicine & Rehabilitation
DX: I63.02 Cerebral infarction due to thrombosis of basilar artery (principal); I13.0 Hypertensive heart and chronic kidney disease with heart failure and stage 1 through stage 4 chronic kidney disease, or unspecified chronic kidney disease; N17.9 Acute kidney failure, unspecified; I50.30 Unspecified diastolic (congestive) heart failure; G81.94 Hemiplegia, unspecified affecting left nondominant side; E03.9 Hypothyroidism, unspecified; E11.22 Type 2 diabetes mellitus with diabetic chronic kidney disease; E78.5 Hyperlipidemia, unspecified; F15.10 Other stimulant abuse, uncomplicated; F31.9 Bipolar disorder, unspecified; N18.3 Chronic kidney disease, stage 3 (moderate); R13.10 Dysphagia, unspecified; E66.9 Obesity, unspecified; G31.84 Mild cognitive impairment of uncertain or unknown etiology; K59.00 Constipation, unspecified; R13.13 Dysphagia, pharyngeal phase; R27.0 Ataxia, unspecified; E11.42 Type 2 diabetes mellitus with diabetic polyneuropathy; Z79.899 Other long term (current) drug therapy; Z79.4 Long term (current) use of insulin; Z81.8 Family history of other mental and behavioral disorders; Z83.3 Family history of diabetes mellitus
CPT/HCPCS: 74018; 74230; 76770; 83036; 84443; 87081; 92507; 92508; 92526; 92610; 92611; 93005; 93970; 97110; 97112; 97116; 97163; 97167; 97530; 97535; 99366; J1815